=== PATIENT | male | born 1980 | race Caucasian/White ===

== ENCOUNTER 2016-08-15 15:37 | Emergency (ER) | payer OTHER ==
--- NOTE | 2016-08-15 16:22 | UC ---
UC General HPI - HPI Summary HPI Summary: complaint of cellulitis on left foot insect bite on his left foot that he noticed 3 days ago was seen 2 days ago [facility] and started on keflex red area is getting bigger and is slightly painful denies fever and chills - History of Current Complaint Stated Complaint: INSECT BITE Time Seen by Provider: 08/15/16 16:14 Hx Obtained From: Patient - Allergy/Home Medications Allergies/Adverse Reactions: Allergies Allergy/AdvReac Type Severity Reaction Status Date / Time No Known Allergies Allergy Verified 05/28/14 23:46 PMH/Surg Hx/FS Hx/Imm Hx Previously Healthy: Yes Other History Of: Negative For: Anticoagulant Therapy - Surgical History Surgical History: Yes Surgery Procedure, Year, and Place: as child for crossed eyes - Family History Known Family History: Positive: Unknown - Social History Occupation: Employed Full-time Lives: With Family Alcohol Use: Rare Substance Use Type: None Smoking Status (MU): Light Every Day Tobacco Smoker Type: Cigarettes, eCigarettes Length of Time of Smoking/Using Tobacco: 7-8 YEARS Have You Smoked in the Last Year: Yes When Did the Patient Quit Smoking/Using Tobacco: 1 YEARS Cessation Counseling: Patient Advised to Stop Review of Systems Constitutional: Negative Skin: Rash Eyes: Negative ENT: Negative Respiratory: Negative Cardiovascular: Negative Gastrointestinal: Negative Genitourinary: Negative Motor: Negative Neurovascular: Negative Musculoskeletal: Negative Neurological: Negative Psychological: Negative All Other Systems Reviewed And Are Negative: Yes Physical Exam Triage Information Reviewed: Yes Appearance: No Pain Distress, Well-Nourished Vital Signs Reviewed: Yes Eyes: Positive: Conjunctiva Clear ENT: Positive: Pharynx normal, TMs normal Neck: Positive: No Lymphadenopathy Respiratory: Positive: Lungs clear, Normal breath sounds, No respiratory distress Cardiovascular: Positive: RRR, No Murmur, Pulses Normal Abdomen Description: Positive: Nontender, Soft Bowel Sounds: Positive: Present Musculoskeletal: Positive: No Edema Neurological: Positive: Alert Psychological Exam: Normal Skin: Positive: rashes, Other - left foot with 4x4cm area of erythema surrounding insect bite- no area of induration beneath, warm to touch Course/Dx - Differential Dx - Multi-Symptom Provider Diagnoses: cellulitis Discharge - Discharge Plan Condition: Stable Disposition: HOME Prescriptions: Sulfamethox/Trimethoprim DS* [Bactrim DS 800/160 TAB*] 1 tab PO BID #14 tab Patient Education Materials: Cellulitis (ED) Referrals: Esteban SCOTT,Gregorio Desai [Primary Care Provider] - Additional Instructions: stop Keflex and start Bactrim CELLULITIS What is Cellulitis? Cellulitis is a bacterial infection of the skin and, sometimes, of the tissues beneath the skin. The skin normally has many types of bacteria on it, but intact skin is an effective barrier that keeps bacteria from entering and growing within the body. When there is a break in the skin, bacteria can enter the body and grow there, causing infection. The infection usually affects outer layers of the skin first, and then spreads deeper into body tissues. Cellulitis can affect any area of the body covered by skin, but it is most common on the face or lower part of the legs. Symptoms Might Include: Skin redness that increases in size as the infection spreads Tight, glossy, "stretched" appearance of the skin Pain or tenderness of the area The affected area may be warm or hot to the touch A thin red line (along a vein) from the cellulitis toward the heart Fever Chills, shaking Muscle aches pains Joint stiffness because of swelling around a joint Treatment Recommendations: The healthcare provider may have prescribed an antibiotic medicine. The medicine should be taken until it is completely gone, even if you are feeling better. If you stop taking the medicine early, the infection may not be completely gone, and the medication may not work the next time. If the infection is on your arm or leg, keep it elevated. You may use warm, wet compresses to relieve the pain and help healing. Soak a clean cloth in warm water, wring it out a little, and apply it to the affected site. Leave the soak in place for 15 minutes and repeat often throughout the day. Rest until the fever is gone and the pain and redness have lessened. You may take ibuprofen (Motrin, Advil), or acetaminophen (Tylenol) for pain. These will help ease some of the symptoms but will not cure the infection. Call Your Doctor or Return Here IF: Your fever does not go down with treatment, or it increases to more than 101 F. You are not starting to get better with the treatment within 24 to 36 hours. You have increasing pain, swelling, or chills. You feel drowsy and lethargic, or you have vomiting or diarrhea. You find the redness is spreading or there are red streaks coming from the infected area. The joint or bone under the infected skin becomes painful after the skin has started to heal. You have any new symptoms that worry you. Your blood pressure is pre-hypertensive reading. Please contact your primary care provider within 1 day -4 weeks for further evaluation
[2016-08-15 16:23] VITALS: BP 133/92
== END 2016-08-15 16:42 | disposition home or self-care (01) ==
LOC: UCEAST 15:37
DX: L03.116 Cellulitis of left lower limb (principal); F17.210 Nicotine dependence, cigarettes, uncomplicated
CPT/HCPCS: 99212; G0463

== ENCOUNTER 2016-09-08 23:27 | Emergency (ER) | payer BC, OTHER ==
[2016-09-08 23:38] VITALS: BP 131/108
[2016-09-09] MEDS ORDERED: oxyCODONE/Acetamin 5/325 MG* TAB PO ONE (00:58)
--- NOTE | 2016-09-09 01:53 | ED ---
Vic Knowles Rebecca, scribed for Walker Summers MD on 09/09/16 at 0059 . Throat Pain/Nasal Congestion - HPI Summary HPI Summary: Pt is a 36 y/o M who presents to ED c/o dental pain. Pain began 5 days ago and has been intermittent since onset, at its worst tonight. Pain is in the Left upper molar region. On triage, pt reported pain to be 10/10, though now pain is improved significantly. Episode tonight lasted for 3-4 hours. He saw his dentist today who prescribed Clindamycin to treat dental infection and scheduled a L upper wisdom tooth extraction for September 17. - History of Current Complaint Chief Complaint: EDDentalPain Time Seen by Provider: 09/09/16 00:51 Hx Obtained From: Patient Onset/Duration: Lasting Days - 5 days, Resolved Associated Signs And Symptoms: Positive: Negative - Allergies/Home Medications Allergies/Adverse Reactions: Allergies Allergy/AdvReac Type Severity Reaction Status Date / Time No Known Allergies Allergy Verified 09/08/16 23:35 PMH/Surg Hx/FS Hx/Imm Hx Endocrine/Hematology History: Denies: Hx Anticoagulant Therapy, Hx Diabetes, Hx Thyroid Disease Cardiovascular History: Denies: Hx Hypertension Respiratory History: Denies: Hx Asthma, Hx Chronic Obstructive Pulmonary Disease (COPD) GI History: Denies: Hx Ulcer Musculoskeletal History: Reports: Other Musculoskeletal History - lumbar spondylosis - Surgical History Surgery Procedure, Year, and Place: as child for crossed eyes Infectious Disease History: Reports: Hx Shingles Denies: Hx Hepatitis, Hx Human Immunodeficiency Virus (HIV), Traveled Outside the [place] in Last 30 Days - Family History Known Family History: Negative: Cardiac Disease - Social History Alcohol Use: Rare Substance Use Type: Reports: None Smoking Status (MU): Light Every Day Tobacco Smoker Type: Cigarettes, eCigarettes Length of Time of Smoking/Using Tobacco: 7-8 YEARS Have You Smoked in the Last Year: Yes Review of Systems Negative: Fever Positive: Dental Pain All Other Systems Reviewed And Are Negative: Yes Physical Exam - Summary Physical Exam Summary: General: well-appearing, no pain distress Skin: warm, color reflects adequate perfusion, dry Head: normal Eyes: EOMI, ROSALES ENT: Left upper molar is decayed and falling apart Neck: supple, nontender Respiratory: CTA, breath sounds present Cardiovascular: RRR Musculoskeletal: normal, strength/ROM intact Neurological: normal, sensory/motor intact, A&O x3 Psychological: affect/mood appropriate Triage Information Reviewed: Yes Vital Signs On Initial Exam: Initial Vitals Temp Pulse Resp BP Pulse Ox 97.8 F 91 16 131/108 100 09/08/16 23:36 09/08/16 23:36 09/08/16 23:36 09/08/16 23:36 09/08/16 23:36 Vital Signs Reviewed: Yes Diagnostics - Vital Signs Vital Signs Temp Pulse Resp BP Pulse Ox 09/08/16 23:36 97.8 F 91 16 131/108 100 - Laboratory Lab Statement: Any lab studies that have been ordered have been reviewed, and results considered in the medical decision making process. EENT Course/Dx - Course Course Of Treatment: NO CRITICAL CARE TIME. PATIENT IS ON CLINDAMYCIN FROM HIS DENTIST. THE MOLAR REMOVAL IS SCHEDULED AFTER THE INFECTION IS GONE. - Diagnoses Provider Diagnoses: Pain, dental Discharge - Discharge Plan Condition: Stable Disposition: HOME Prescriptions: oxyCODONE/Acetamin 5/325 MG* [Percocet 5/325 TAB*] 1 tab PO Q4H PRN #30 tab MDD 6 PRN Reason: Pain Patient Education Materials: Toothache (ED) Referrals: Esteban SCOTT,Gregorio Desai [Primary Care Provider] - Additional Instructions: FOLLOW UP WITH YOUR DENTIST. RETURN TO THE EMERGENCY DEPARTMENT FOR ANY WORSENING OF YOUR CONDITION OR QUESTIONS OR CONCERNS. The documentation as recorded by the Vic aguilar Rebecca accurately reflects the service I personally performed and the decisions made by me, Walker Summers MD.
== END 2016-09-09 01:25 | disposition home or self-care (01) ==
LOC: ED 23:27
DX: K08.89 Other specified disorders of teeth and supporting structures (principal); F17.210 Nicotine dependence, cigarettes, uncomplicated
CPT/HCPCS: 99282; A9270-GY

== ENCOUNTER 2017-09-13 19:15 | Emergency (ER) | payer BC, OTHER ==
[2017-09-13] MEDS ORDERED: NS 0.9% 1000 ML* 1,000 ML IV ONE (19:52)
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
[2017-09-13 20:17] LABS: ABS Basophils 0.1 10^3/ul (0-0.2); ABS Eosinophils 0.1 10^3/ul (0-0.6); ABS Lymphocytes 1.7 10^3/ul (1.0-4.8); ABS Monocytes 1.1 10^3/ul (0-0.8); ABS Neutrophils 14.5 10^3/ul (1.5-7.7); ABS Nucleated RBC 0 10^3/ul; Eosinophil % 0.5 % (0-6); Hematocrit 44 % (42-52); Hemoglobin 14.9 g/dl (14.0-18.0); Lymphocyte % 9.5 % (25-47); Mean Corpuscular HGB Conc 34 g/dl (31-36); Mean Corpuscular Hemoglobin 29 pg (27-31); Mean Corpuscular Volume 86 fL (80-94); Mean Platelet Volume 7.5 um3 (7.4-10.4); Nucleated Red Blood Cells % 0.1; Platelet Count 240 10^3/ul (150-450); Red Blood Count 5.06 10^6/ul (4.00-5.40); Red Cell Distribution Width 14 % (10.5-15); White Blood Count 17.5 10^3/ul (3.5-10.8)
[2017-09-13 20:34] LABS: EGFR Non-African American 86.2 (>60)
[2017-09-13 21:25] LABS: Urine Appearance Cloudy; Urine Blood 1+ (Negative); Urine Color Yellow; Urine Ketones Negative (Negative); Urine Protein 1+(30 mg/dL) (Negative); Urine Red Blood Cell Absent (Absent); Urine Specific Gravity 1.018 (1.010-1.030); Urine Urobilinogen Negative (Negative); Urine White Blood Cell Trace(0-5/hpf) (Absent)
--- NOTE | 2017-09-13 21:43 | RAD ---
INDICATION: Syncope. COMPARISON: Comparison is made with a prior chest x-ray study from August 12, 2011. TECHNIQUE: A portable view of the chest was obtained. FINDINGS: Cardiac and mediastinal contours appear to be within normal limits. The lungs are underinflated and clear. No pleural effusion is seen. IMPRESSION: NO EVIDENCE FOR ACUTE DISEASE.
[2017-09-13 22:02] VITALS: BP 170/117
--- NOTE | 2017-09-14 07:30 | RAD ---
INDICATION: Syncope. Possible intracranial injury. COMPARISON: None TECHNIQUE: Noncontrast axial source images were acquired from the skull base to the vertex. FINDINGS: Ventricles/sulci: The ventricles and cisterns are normal in size and configuration for age. Brain parenchyma: There is no focal parenchymal finding, evidence of intracranial mass, or intracranial mass effect. Intracranial hemorrhage:None. Extra-axial spaces: There are no abnormal extra axial fluid collections or evidence of extra-axial mass. Calvarium: There is no calvarial fracture or other calvarial abnormality. Scalp: There is no evidence of scalp or extracalvarial soft tissue abnormality. Paranasal sinuses/mastoid: There is mild ethmoid and left maxillary antral sinus mucoperiosteal thickening. Other: None. IMPRESSION: Findings of mild chronic sinusitis. No acute intracranial findings
== END 2017-09-13 22:01 | disposition home or self-care (01) ==
LOC: ED 19:15
DX: R55 Syncope and collapse (principal); F19.10 Other psychoactive substance abuse, uncomplicated; R00.0 Tachycardia, unspecified; J32.9 Chronic sinusitis, unspecified; F90.9 Attention-deficit hyperactivity disorder, unspecified type; F17.210 Nicotine dependence, cigarettes, uncomplicated
CPT/HCPCS: 36415; 70450; 71045; 80053; 80307; 80320; 80329; 81003; 81015; 82550; 83605; 83735; 84443; 84484; 85025; 87086; 93005; 99284; G0480

== ENCOUNTER 2017-09-28 07:40 | Emergency (ER) | payer SELFPAY ==
[2017-09-28] MEDS ORDERED: Ketorolac INJ* 30 MG/ML 1 ML VIAL IV ONE (07:59)
[2017-09-28] MEDS ORDERED: Ondansetron INJ* 2 MG/ML VIAL IV ONE (08:00)
--- NOTE | 2017-09-28 08:02 | ED ---
Abdominal Pain/Male - HPI Summary HPI Summary: The pt is a 35 y/o male with a PMHX of nephrolithiasis presenting to the [facility] c /o severe L flank pain worsened this morning.The pain is not alleviated by anything. He has had similar symptoms in the past. The pt denies nausea and vomiting. This is jeff Cantu documenting for attending Dr. Anirudh MD. - History of Current Complaint Chief Complaint: EDFlankPain Stated Complaint: FLANK PAIN Time Seen by Provider: 09/28/17 07:52 Hx Obtained From: Patient Onset/Duration: Still Present, Worse Since - Today morning Timing: Constant Severity Initially: Severe Severity Currently: Severe Pain Intensity: 10 Location: Flank Character: Other: - Throbbing Alleviating Factor(s): Nothing Associated Signs And Symptoms: Negative: Nausea, Vomiting - Allergies/Home Medications Allergies/Adverse Reactions: Allergies Allergy/AdvReac Type Severity Reaction Status Date / Time No Known Allergies Allergy Verified 09/28/17 08:22 Home Medications: Home Medications Dextroamphetamine/Amphetamine [Adderall 20 mg Tablet] 1 tab PO TID 09/28/17 [ History Confirmed 09/28/17] PMH/Surg Hx/FS Hx/Imm Hx Previously Healthy: No Endocrine/Hematology History: Denies: Hx Anticoagulant Therapy, Hx Diabetes, Hx Thyroid Disease Cardiovascular History: Denies: Hx Hypertension Respiratory History: Denies: Hx Asthma, Hx Chronic Obstructive Pulmonary Disease (COPD) GI History: Denies: Hx Ulcer History: Reports: Hx Kidney Stones Musculoskeletal History: Reports: Other Musculoskeletal History - lumbar spondylosis Psychiatric History: Reports: Hx Attention Deficit Hyperactivity Disorder - Surgical History Surgery Procedure, Year, and Place: as child for crossed eyes Infectious Disease History: No Infectious Disease History: Reports: Hx Shingles Denies: Hx Hepatitis, Hx Human Immunodeficiency Virus (HIV), Traveled Outside the [place] in Last 30 Days - Family History Known Family History: Positive: Other Negative: Cardiac Disease Family History: alcoholism - Social History Occupation: Employed Full-time Lives: With Family Alcohol Use: None Substance Use Type: Reports: None Hx Tobacco Use: Yes Smoking Status (MU): Light Every Day Tobacco Smoker Type: Cigarettes, eCigarettes Length of Time of Smoking/Using Tobacco: 7-8 YEARS Have You Smoked in the Last Year: Yes Review of Systems Negative: Fever Positive: Nausea Positive: flank pain - L. Flank All Other Systems Reviewed And Are Negative: Yes Physical Exam - Summary Physical Exam Summary: VITAL SIGNS: Reviewed. GENERAL: Patient is a well-developed and nourished male who is standing by the stretcher.Patient is not in any acute respiratory distress. HEAD AND FACE: Normocephalic and atraumatic. EYES: PERRLA, EOMI x 2, No injected conjunctiva. EARS: Hearing grossly intact. Ear canals and tympanic membranes are WNL. MOUTH: Oropharynx within normal limits. NECK: Supple, trachea is midline, no adenopathy, no JVD. CHEST: Symmetric, no tenderness at palpation LUNGS: Clear to auscultation bilaterally. No wheezing or crackles. CVS: RRR, S1 and S2 present, no murmurs or gallops appreciated. ABDOMEN: Soft, Left CVA tenderness. No signs of distention. Positive bowel sounds. No rebound no guarding, and no masses palpated. No abdominal bruit or pulsations. EXTREMITIES: FROM in all major joints, no edema, no cyanosis or clubbing. NEURO: Alert and oriented x 3. No acute neurological deficits. Speech is normal. SKIN: Dry and warm Triage Information Reviewed: Yes Vital Signs On Initial Exam: Initial Vitals Temp Pulse Resp BP Pulse Ox 97.8 F 86 16 141/92 98 09/28/17 07:42 09/28/17 07:42 09/28/17 07:42 09/28/17 07:42 09/28/17 07:42 Vital Signs Reviewed: Yes Diagnostics - Vital Signs Vital Signs Temp Pulse Resp BP Pulse Ox 09/28/17 07:42 97.8 F 86 16 141/92 98 - Laboratory Result Diagrams: 09/28/17 08:01 09/28/17 08:01 Lab Statement: Any lab studies that have been ordered have been reviewed, and results considered in the medical decision making process. - CT Abd/Pel CT CT Interpretation Completed By: Radiologist - IMPRESSION: 4 MM PROXIMAL LEFT URETERAL CALCULUS WITH MILD OBSTRUCTIVE FINDINGS. ADDITIONAL NONOBSTRUCTIVE 2 MM UPPER POLE LEFT RENAL CALCULUS. The ED Physician has reviewed thi radiology report. Abd/Pel CT w/o contrast CT Interpretation Completed By: Radiologist - IMPRESSION: 4 MM PROXIMAL LEFT URETERAL CALCULUS WITH MILD OBSTRUCTIVE FINDINGS. ADDITIONAL NONOBSTRUCTIVE 2 MM UPPER POLE LEFT RENAL CALCULUS. The ED Physician has reviewed thi radiology report. - EKG 09:56 Cardiac Rate: NL - 65 bpm EKG Rhythm: Sinus Rhythm - 65bpm EKG Interpretation: Normal Sinus rythm Re-Evaluation - Re-Evaluation First Eval Re-Evaluation Time: 10:18 Change: Improved Comment: Pt is asymptomatic and the pain is gone. Abdominal Pain Fem Course/Dx - Course Assessment/Plan: This patient is a 37-year-old male who presents to the emergency department with a chief complaint of left flank pain. Patient has history of kidney stones and he thinks that he is having another kidney stone. Blood test results without any significant abnormality. Urinalysis is negative for UTI. Abdominopelvic CT impression: 4 mm kidney stone. We will report as above. Initially the patient was given IV fluids and Toradol and the symptoms resolved. At this point the patient is asymptomatic. He requested discharge home. The patient was given a prescription for Flomax ibuprofen and Percocet. Patient has a urologist in [place] he will follow up with him. At this point the patient is hemodynamically stable, alert and oriented 3. Patient reports that he is unable to give a urine and he needs to be discharged. The patient reports that he has an appointment and he needs to be. He understands that I'm unable to determine if the patient has a uretic infection. Patient understands to stay he wants to be discharged. He will return to the emergency room he develops any fever, chills or any other symptom. - Diagnoses Differential Diagnosis/HQI/PQRI: Renal Colic, Ureteral Stone, Urinary Tract Infection Provider Diagnoses: Nephrolithiasis Discharge - Sign-Out/Discharge Documenting (check all that apply): Patient Departure - DC - Discharge Plan Condition: Stable Disposition: HOME Prescriptions: Ibuprofen TAB* [Motrin TAB* 800 MG] 800 mg PO ONCE #30 tab oxyCODONE/Acetamin 5/325 MG* [Percocet 5/325 TAB*] 1 tab PO Q6H PRN #10 tab MDD 4 PRN Reason: Pain Tamsulosin CAP* [Flomax CAP*] 0.4 mg PO DAILY #10 cap Patient Education Materials: Kidney Stones (ED) Referrals: Esteban SCOTT,Gregorio Desai [Primary Care Provider] - 3 Days Additional Instructions: RETURN TO ED FOR ANY WORSENING OR NEW SYMPTOMS. - Billing Disposition and Condition Condition: STABLE Disposition: Home Attestation Statement Scribe Attestation: This is scribe Jackie Cantu documenting for attending Dr. Anirudh MD. User Type: Provider with Scribe Provider Attestation: The documentation recorded by the scribe accurately reflects the service I personally performed and the decisions made by me.
[2017-09-28] MEDS: NS 0.9% 1000 ML* 2,000 ML IV ONE ×2 (08:16→09:14)
[2017-09-28 08:25] LABS: ABS Basophils 0.1 10^3/ul (0-0.2); ABS Eosinophils 0.4 10^3/ul (0-0.6); ABS Lymphocytes 2.5 10^3/ul (1.0-4.8); ABS Monocytes 0.7 10^3/ul (0-0.8); ABS Neutrophils 4.9 10^3/ul (1.5-7.7); ABS Nucleated RBC 0 10^3/ul; Eosinophil % 4.3 % (0-6); Hematocrit 41 % (42-52); Hemoglobin 14.1 g/dl (14.0-18.0); Lymphocyte % 29.2 % (25-47); Mean Corpuscular HGB Conc 35 g/dl (31-36); Mean Corpuscular Hemoglobin 30 pg (27-31); Mean Corpuscular Volume 87 fL (80-94); Mean Platelet Volume 7.5 um3 (7.4-10.4); Nucleated Red Blood Cells % 0; Platelet Count 280 10^3/ul (150-450); Red Blood Count 4.67 10^6/ul (4.00-5.40); Red Cell Distribution Width 13 % (10.5-15); White Blood Count 8.6 10^3/ul (3.5-10.8)
[2017-09-28 08:44] LABS: EGFR Non-African American 74.5 (>60)
--- NOTE | 2017-09-28 09:03 | RAD ---
INDICATION: Left flank pain COMPARISON: None TECHNIQUE: Noncontrast axial source images were acquired from the level hemidiaphragms to the symphysis pubis as part of CT imaging for renal stone. Lung bases: The lung bases are clear. Liver: The liver is normal in size. Noncontrast imaging shows no evidence of a hepatic mass or ductal dilatation. Gallbladder: There are no calcified gallstones. There is no evidence of wall thickening or pericholecystic fluid.. Spleen: The spleen is normal in size. The noncontrast CT appearance is normal. Pancreas: Noncontrast imaging shows no pancreatic mass or ductal dilitation. Adrenal glands: No masses are identified. Kidneys/Bladder: There is a 4 mm calculus in the proximal left ureter producing mild obstructive findings. There is a 2 mm, nonobstructive upper pole left renal calculus. There are no other calcifications of urinary significance. There is no renal mass on noncontrast evaluation. The bladder is unremarkable.. Adenopathy: There is no evidence of intraperitoneal or retroperitoneal adenopathy. Evaluation is limited without oral contrast. Fluid collections: There are no free or localized fluid collections. Vessels: The aorta and iliac vessels are normal in caliber. There are no significant atherosclerotic changes. The IVC appears normal Pelvic organs: The uterus and adnexa appear normal GI tract: Evaluation of the bowel is limited without oral contrast. The stomach, small bowel, and lower GI tract appear grossly normal. There are no obstructive findings. The appendix is visualized and appears normal. Soft tissues: No soft tissue abnormalities of the extraperitoneal abdomen or pelvis are identified. Osseous structures: There are no acute osseous findings. IMPRESSION: 4 MM PROXIMAL LEFT URETERAL CALCULUS WITH MILD OBSTRUCTIVE FINDINGS. ADDITIONAL NONOBSTRUCTIVE 2 MM UPPER POLE LEFT RENAL CALCULUS.
[2017-09-28] MEDS ORDERED: Tamsulosin CAP* 0.4 MG PO ONE (10:50)
[2017-09-28 11:21] VITALS: BP 121/72
== END 2017-09-28 11:20 | disposition home or self-care (01) ==
LOC: ED 07:40
DX: N20.0 Calculus of kidney (principal); F17.210 Nicotine dependence, cigarettes, uncomplicated
CPT/HCPCS: 36415; 74176; 80053; 83605; 83690; 85025; 86140; 96361; 96374; 96375; 99283; J1885; J2405